=== PATIENT | male | born 1980 | race Caucasian/White ===

== ENCOUNTER 2019-02-25 08:26 | Emergency (ER) | payer OTHER ==
--- NOTE | 2019-02-25 10:07 | RAD REPORT ---
EXAM DESCRIPTION: RAD - Ankle Right 3 View - 02/25/2019 9:22 am CLINICAL HISTORY: ankle pain Trauma, pain to foot and ankle COMPARISON: None FINDINGS: Right ankle and right foot- multiple projections are submitted. Lucency is seen in the posterior aspect of the calcaneus compatible with nondisplaced fracture. No di slocation is evident.
--- NOTE | 2019-02-25 11:32 | ER ---
Nurse's Notes [facility] Name: Jfe Dickson Age: 38 yrs Sex: Male : 1980 Arrival Date: 02/25/2019 Time: 08:30 Bed 17 Private MD: Diagnosis: Unspecified fracture of calcaneus Presentation: 02/25 08:44 Presenting complaint: Patient states: R ankle pain that began 3 days ago after stepping ss into a hole and tripping. Transition of care: patient was not received from another setting of care. Onset of symptoms was February 22, 2019. Risk Assessment: Do you want to hurt yourself or someone else? Patient reports no desire to harm self or others. Initial Sepsis Screen: Does the patient meet any 2 criteria? No. Patient's initial sepsis screen is negative. Does the patient have a suspected source of infection? No. Patient's initial sepsis screen is negative. Care prior to arrival: None. 08:44 Acuity: GEORGE 4 ss 08:44 Method Of Arrival: Ambulatory ss Triage Assessment: 08:45 General: Appears in no apparent distress. comfortable, Behavior is cooperative, bp appropriate for age, anxious. Pain: Complains of pain in right ankle. EENT: No deficits noted. Neuro: No deficits noted. Cardiovascular: No deficits noted. Respiratory: No deficits noted. GI: No signs and/or symptoms were reported involving the gastrointestinal system. : No signs and/or symptoms were reported regarding the genitourinary system. Derm: No deficits noted. Musculoskeletal: Reports pain in right ankle. Historical: - Allergies: 08:44 No Known Allergies; ss - Home Meds: 08:44 None [Active]; ss - PMHx: 08:44 None; ss - PSHx: 08:44 None; ss - Immunization history:: Adult Immunizations up to date. - Social history:: Smoking status: Patient uses tobacco products, smokes one pack cigarettes per day. - Ebola Screening: : Patient denies exposure to infectious person Patient denies travel to an Ebola-affected area in the 21 days before illness onset. Screenin:14 Abuse screen: Denies threats or abuse. Denies injuries from another. Nutritional bp screening: No deficits noted. Tuberculosis screening: No symptoms or risk factors identified. Fall Risk None identified. Assessment: 08:45 General: SEE TRIAGE NOTE. bp 09:46 Reassessment: CURRENT ORDERS COMPLETED, RESULTS PENDING. bp 11:58 Reassessment: PT D/C HOME VIA CRUTCHES WITH FAMILY, DX WITH NONDISPLACED CALCANEUS FX. bp Vital Signs: 08:42 BP 118 / 85; Pulse 67; Resp 16; Temp 98.5(TE); Pulse Ox 97% on R/A; Weight 65.77 kg; ss Height 6 ft. 1 in. (185.42 cm); Pain 8/10; 09:46 BP 123 / 84; Pulse 70; Resp 17; Pulse Ox 100% ; bp 08:42 Body Mass Index 19.13 (65.77 kg, 185.42 cm) ED Course: 08:30 Patient arrived in ED. mr 08:39 Sami Monson PA is PHCP. [facility] 08:39 Yong Arshad MD is Attending Physician. m 08:42 Arm band placed on right wrist. ss 08:44 Triage completed. ss 09:12 Sabas Avina, RN is Primary Nurse. bp 09:14 Patient has correct armband on for positive identification. Bed in low position. Call bp light in reach. Side rails up X2. 09:23 Ankle Right 3 View XRAY In Process Unspecified. EDMS 09:23 Foot Right 3 View XRAY In Process Unspecified. EDMS 09:50 Pulse ox on. NIBP on. mh5 11:29 Rufus Watt MD is Referral Physician. m 11:31 Crutch training done. Sebastián wrap to right ankle Orthoglass splint: Posterior short lleg jp3 splint applied on right leg. 11:59 No provider procedures requiring assistance completed. Patient did not have IV access bp during this emergency room visit. Administered Medications: No medications were administered Outcome: 11:32 Discharge ordered by . jmm 11:59 Discharged to home with crutches, with family. bp 11:59 Condition: stable 11:59 Discharge instructions given to patient, Instructed on discharge instructions, follow up and referral plans. medication usage, crutch walking, Demonstrated understanding of instructions, follow-up care, medications, crutch walking, splint care, Prescriptions given X 1. 12:00 Patient left the ED. bp Signatures: Dispatcher [employer] EDMS Sami Monson PA PA jmm Rivera, Mary mr Ng, Kiah, RN RN ss Amelia Caicedo 5 Sabas Avina, RN RN bp John Soni jp3
--- NOTE | 2019-02-25 11:32 | EDPHYS ---
Physician Documentation [facility] Name: Jef Dickson Age: 38 yrs Sex: Male : 1980 Arrival Date: 02/25/2019 Time: 08:30 Bed 17 Private MD: ED Physician Yong Arshad HPI: 02/25 08:43 This 38 yrs old Male presents to ER via Ambulatory with complaints of Ankle jmm Injury. 08:43 The patient presents with an injury, pain. Onset: The symptoms/episode began/occurred jmm acutely, 3 day(s) ago. Associated signs and symptoms: Pertinent positives: swelling. This is a 38 year old male with no chronic medical conditions that presents to the ED with complaints of right ankle pain, right foot pain beginning after stepping into a tree stump hold 3 days ago. Patient denies other injury, denies back pain. . Historical: - Allergies: 08:44 No Known Allergies; ss - Home Meds: 08:44 None [Active]; ss - PMHx: 08:44 None; ss - PSHx: 08:44 None; ss - Immunization history:: Adult Immunizations up to date. - Social history:: Smoking status: Patient uses tobacco products, smokes one pack cigarettes per day. - Ebola Screening: : Patient denies exposure to infectious person Patient denies travel to an Ebola-affected area in the 21 days before illness onset. ROS: 08:43 Constitutional: Negative for fever, chills, and weight loss, Cardiovascular: Negative jmm for chest pain, palpitations, and edema, Respiratory: Negative for shortness of breath, cough, wheezing, and pleuritic chest pain. 08:43 MS/extremity: Positive for injury or acute deformity, pain. 08:43 All other systems are negative. Exam: 08:43 Constitutional: This is a well developed, well nourished patient who is awake, alert, jmm and in no acute distress. Head/Face: atraumatic. Eyes: EOMI, no conjunctival erythema appreciated ENT: Moist Mucus Membranes Neck: Trachea midline, Supple Chest/axilla: Normal chest wall appearance and motion. Cardiovascular: Regular rate and rhythm. No edema appreciated Respiratory: Normal respirations, no respiratory distress appreciated Abdomen/GI: Non distended, soft 08:43 Back: pain, is absent, ROM is normal. 08:43 Musculoskeletal/extremity: ecchymosis noted to the right lateral foot, heel is TTP, full dorsalis pulse, compartments are soft, NVI. 08:43 Skin: Appearance: Color: normal in color, ecchymosis noted to the right lateral foot. 08:43 Neuro: Orientation: is normal, Mentation: is normal, Memory: is normal. 08:43 Psych: Behavior/mood is pleasant, cooperative. Vital Signs: 08:42 BP 118 / 85; Pulse 67; Resp 16; Temp 98.5(TE); Pulse Ox 97% on R/A; Weight 65.77 kg; ss Height 6 ft. 1 in. (185.42 cm); Pain 8/10; 09:46 BP 123 / 84; Pulse 70; Resp 17; Pulse Ox 100% ; bp 08:42 Body Mass Index 19.13 (65.77 kg, 185.42 cm) ss Procedures: 11:28 Splinting: Splint applied to right leg using Orthoglass splint, applied by tech. ed Examined by me, post splint application: neurovascular intact, 2+ distal pulses palpable, brisk capillary refill noted, Patient tolerated well. MDM: 08:43 Patient medically screened. [facility] 11:28 Data reviewed: vital signs, nurses notes. [facility] 11:28 Data reviewed: radiologic studies, plain films. Counseling: I had a detailed discussion ed with the patient and/or guardian regarding: the historical points, exam findings, and any diagnostic results supporting the discharge/admit diagnosis, radiology results, the need for outpatient follow up, to return to the emergency department if symptoms worsen or persist or if there are any questions or concerns that arise at home. ED course: Patient advised not to bear weight until cleared by ortho. Patient was otherwise given strict return precautions. Patient understood and agrees with the plan of care. . 02/25 08:44 Order name: Ankle Right 3 View XRAY; Complete Time: 10:13 [facility] 02/25 08:44 Order name: Foot Right 3 View XRAY [facility] 02/25 10:27 Order name: Posterior Leg Splint; Complete Time: 11:19 [facility] 02/25 10:27 Order name: Crutches; Complete Time: 11:19 [facility] Administered Medications: No medications were administered Disposition: 17:07 Co-signature as Attending Physician, Yong Arshad MD. rn Disposition: 02/25/19 11:32 Discharged to Home. Impression: Unspecified fracture of calcaneus. - Condition is Stable. - Discharge Instructions: Calcaneal Fracture Repair Surgery. - Prescriptions for Ultracet 37.5- 325 mg Oral Tablet - take 1 tablet by ORAL route every 6 hours - for up to 5 days; do not exceed 8 tablets per day.; 12 tablet. - Medication Reconciliation Form, Thank You Letter, Antibiotic Education, Prescription Opioid Use form. - Follow up: Rufus Watt MD; When: 2 - 3 days; Reason: Recheck today's complaints, Continuance of care, Re-evaluation by your physician. Signatures: Dispatcher [employer] EDMS Sami Monson PA PA jmm Nieto, Roman, MD MD rn Kiah Ng RN RN Sabas Brown RN RN bp Corrections: (The following items were deleted from the chart) 12:00 11:32 02/25/2019 11:32 Discharged to Home. Impression: Unspecified fracture of bp calcaneus. Condition is Stable. Forms are Medication Reconciliation Form, Thank You Letter, Antibiotic Education, Prescription Opioid Use. Follow up: Rufus Watt; When: 2 - 3 days; Reason: Recheck today's complaints, Continuance of care, Re-evaluation by your physician. ed
[2019-02-25 16:25] VITALS: TEMP 98.5
[2019-02-25 16:27] VITALS: BP 123/84; O2SAT 100
--- NOTE | 2019-02-26 10:36 | RAD REPORT ---
EXAM DESCRIPTION: RAD - Foot Right 3 View - 02/25/2019 9:22 am CLINICAL HISTORY: Ankle pain Trauma, pain to foot and ankle COMPARISON: None FINDINGS: Right ankle and right foot- multiple projections are submitted. Lucency is seen in the posterior aspect of the calcaneus compatible with nondisplaced fracture. No di slocation is evident.
== END 2019-02-25 12:00 | disposition home or self-care (01) ==
LOC: ER 08:26
PROC: 2W3QX1Z Immobilization of Right Lower Leg using Splint (ICD-10-PCS; principal; 2019-02-25)
DX: S92.001A Unspecified fracture of right calcaneus, initial encounter for closed fracture (principal); W22.8XXA Striking against or struck by other objects, initial encounter; Y93.9 Activity, unspecified; Y92.9 Unspecified place or not applicable; F17.210 Nicotine dependence, cigarettes, uncomplicated
CPT/HCPCS: 99284